=== PATIENT | female | born 1935 | race Two or more races ===

== ENCOUNTER 2020-09-26 02:59 | Inpatient (IN) | payer OTHER ==
[~2020-09-26] VITALS: Ht 160 cm; Wt 51.6 kg
[2020-09-26 04:39] LABS: Basophils # (auto) 0 10 ^3/uL (0-0.2); Basophils % (auto) 0.4 % (0.0-2.0); Eosinophils # (auto) 0.1 10 ^3/uL (0-0.8); Eosinophils % (auto) 0.7 % (0.0-7.0); Hematocrit 35.5 % (36.0-46.0); Hemoglobin 12.2 g/dL (12.2-16.2); Lymphocytes # (auto) 0.8 10 ^3/uL (0.4-5.4); Mean Corpuscular Hemoglobin 32.9 pg (28.0-32.0); Mean Corpuscular Hgb Conc. 34.3 g/dL (32.0-36.0); Mean Corpuscular Volume 95.8 fL (80.0-100.0); Monocytes # (auto) 0.6 10 ^3/uL (0-1.3); Monocytes % (auto) 7.3 % (0.0-12.0); Neutrophils # (auto) 6.3 10 ^3/uL (1.6-8.6); Neutrophils % (auto) 81.6 % (37.0-80.0); Platelet Count (auto) 278 10^3/uL (140-450); Red Blood Cells 3.71 10^6/uL (4.0-5.20); White Blood Cell 7.7 10^3/uL (4.4-10.8)
[2020-09-26 04:50] LABS: INR 0.93 (0.9-1.15)
[2020-09-26 05:02] LABS: Calcium 8.6 mg/dL (8.5-10.1)
[2020-09-26 05:04] LABS: BUN/Creatinine Ratio 17.3; Bilirubin, Total 0.7 mg/dL (0.2-1.0); Total Protein 6.9 g/dL (6.4-8.2)
[2020-09-26] MEDS ORDERED: AZITHROMYCIN 500MG/ 250ML 250 ML IV ONE (15:00)
[2020-09-26] MEDS ORDERED: ZINC SULFATE 220mg CAP or TAB PO ONE (15:00)
[2020-09-26] MEDS ORDERED: SODIUM CHLORIDE 0.9% 500 ML IV ONE (15:00)
[2020-09-26] MEDS ORDERED: methylPREDNISolone SOD SUCC 125 MG/2 ML VL IV ONE (15:00)
[2020-09-26 16:01] LABS: CRP High Sensitivity 1.18 mg/dL (< 0.3)
[2020-09-27] MEDS ORDERED: MORPHINE SULF INJ 2 MG/ML SYRINGE 1ML IV PRN
[2020-09-27] MEDS ORDERED: ACETAMINOPHEN 325 MG TAB PO PRN
[2020-09-27] MEDS ORDERED: NITROGLYCERIN 0.4 MG SL TAB SL PRN
[2020-09-27] MEDS ORDERED: DOCUSATE SOD 100 MG CAP PO PRN
[2020-09-27] MEDS ORDERED: HYDROcodone-ACET 5/325MG TAB PO PRN
[2020-09-27] MEDS: POTASSIUM CHL 20MEQ/100ML 100 ML IV SCH ×2 (00:48→17:28)
[2020-09-27 07:38] LABS: Basophils # (auto) 0 10 ^3/uL (0-0.2); Basophils % (auto) 0.8 % (0.0-2.0); Eosinophils # (auto) 0.1 10 ^3/uL (0-0.8); Eosinophils % (auto) 1.1 % (0.0-7.0); Hematocrit 32.5 % (36.0-46.0); Hemoglobin 11.5 g/dL (12.2-16.2); Lymphocytes # (auto) 0.8 10 ^3/uL (0.4-5.4); Lymphocytes % (auto) 16.3 % (10.0-50.0); Mean Corpuscular Hemoglobin 33.4 pg (28.0-32.0); Mean Corpuscular Hgb Conc. 35.4 g/dL (32.0-36.0); Mean Corpuscular Volume 94.5 fL (80.0-100.0); Monocytes # (auto) 0.5 10 ^3/uL (0-1.3); Monocytes % (auto) 10.7 % (0.0-12.0); Neutrophils # (auto) 3.3 10 ^3/uL (1.6-8.6); Neutrophils % (auto) 71.1 % (37.0-80.0); Platelet Count (auto) 270 10^3/uL (140-450); Red Blood Cells 3.44 10^6/uL (4.0-5.20); Red Cell Distribution Width 11.7 % (11.8-14.3); White Blood Cell 4.6 10^3/uL (4.4-10.8)
[2020-09-27 07:53] LABS: Calcium 8.3 mg/dL (8.5-10.1); Potassium 3.8 mmol/L (3.5-5.1)
[2020-09-27 07:58] LABS: BUN/Creatinine Ratio 24.8; Bilirubin, Total 0.6 mg/dL (0.2-1.0)
[2020-09-27] MEDS: HEPARIN SODIUM (PORCINE) 5000 UNITS/ML 1ML VIAL SC SCH ×2 (10:00→22:56)
[2020-09-27] MEDS ORDERED: DexAMETHasone SOD PHOS 10MG/1ML VIAL INJ IV ONE (10:30)
[2020-09-27] MEDS: ASCORBIC ACID 500 MG TAB PO SCH ×2 (10:36→22:57)
[2020-09-27] MEDS: ZINC SULFATE 220mg CAP or TAB PO SCH (10:36)
[2020-09-27] MEDS: AZITHROMYCIN 500MG/ 250ML 250 ML IV SCH (10:36)
[2020-09-27] MEDS: FAMOTIDINE (10MG/ML) 2ML VL IV SCH ×2 (10:36→22:57)
[2020-09-27] MEDS: SODIUM CHLORIDE 0.9% 1,000 ML IV SCH ×2 (10:37→20:57)
[2020-09-27] MEDS: ONDANSETRON HCL 4 MG/2 ML VIAL IV PRN (13:29)
[2020-09-27 20:00] VITALS: BP 168/67
[2020-09-27] MEDS ORDERED: FERR-20 PO (21:45)
[2020-09-27] MEDS ORDERED: FOLI1TAB6 PO (21:45)
[2020-09-27] MEDS ORDERED: LOSA-69 PO (21:45)
[2020-09-27] MEDS ORDERED: CHLO25TA22 PO (21:45)
[2020-09-27] MEDS ORDERED: AMLO10TA13 PO (21:45)
[2020-09-27] MEDS ORDERED: HYDR50TA15 PO (21:45)
[2020-09-27] MEDS ORDERED: GABA100C9 PO (21:45)
[2020-09-27] MEDS ORDERED: ATOR1TAB PO (21:45)
[2020-09-27] MEDS ORDERED: CILO100T PO (21:45)
[2020-09-27] MEDS ORDERED: DEXL60CA4 PO (21:45)
[2020-09-27] MEDS: hydrALAZINE HCL 20 MG/ML VL IV PRN (22:58)
[2020-09-28] VITALS: BP 168/67
[2020-09-28] MEDS: SODIUM CHLORIDE 0.9% 1,000 ML IV SCH (06:30)
[2020-09-28 08:00] VITALS: BP 148/65
[2020-09-28 09:03] LABS: Basophils # (auto) 0 10 ^3/uL (0-0.2); Basophils % (auto) 0.6 % (0.0-2.0); Eosinophils # (auto) 0.1 10 ^3/uL (0-0.8); Eosinophils % (auto) 1.2 % (0.0-7.0); Hematocrit 32.2 % (36.0-46.0); Hemoglobin 11.2 g/dL (12.2-16.2); Lymphocytes % (auto) 19.3 % (10.0-50.0); Mean Corpuscular Hemoglobin 32.9 pg (28.0-32.0); Mean Corpuscular Hgb Conc. 34.9 g/dL (32.0-36.0); Mean Corpuscular Volume 94.3 fL (80.0-100.0); Monocytes # (auto) 0.4 10 ^3/uL (0-1.3); Monocytes % (auto) 8.7 % (0.0-12.0); Neutrophils # (auto) 3.5 10 ^3/uL (1.6-8.6); Neutrophils % (auto) 70.2 % (37.0-80.0); Nucleated Red Blood Cells % 0.1 %; Platelet Count (auto) 296 10^3/uL (140-450); Red Blood Cells 3.41 10^6/uL (4.0-5.20); Red Cell Distribution Width 11.6 % (11.8-14.3)
[2020-09-28 09:14] LABS: BUN/Creatinine Ratio 27.6; Calcium 8.5 mg/dL (8.5-10.1); Magnesium 2.2 mg/dL (1.6-2.6); Potassium 4.3 mmol/L (3.5-5.1)
[2020-09-28] MEDS: DexAMETHasone SOD PHOS 10MG/1ML VIAL INJ IV SCH (10:36)
[2020-09-28] MEDS: ASCORBIC ACID 500 MG TAB PO SCH ×2 (10:37→22:00)
[2020-09-28] MEDS: AZITHROMYCIN 500MG/ 250ML 250 ML IV SCH (10:37)
[2020-09-28] MEDS: HEPARIN SODIUM (PORCINE) 5000 UNITS/ML 1ML VIAL SC SCH ×2 (10:37→22:00)
[2020-09-28] MEDS: FAMOTIDINE (10MG/ML) 2ML VL IV SCH ×2 (10:37→22:00)
[2020-09-28] MEDS: ZINC SULFATE 220mg CAP or TAB PO SCH (10:37)
[2020-09-28] MEDS: ONDANSETRON HCL 4 MG/2 ML VIAL IV PRN (11:04)
[2020-09-28] MEDS ORDERED: REMDESIVIR PER PHARMACY 0 ML IV SCH (12:45)
[2020-09-28] MEDS ORDERED: REMDESIVIR 200 MG in NS 210ml LOADING DOSE ADULT IV ONE (15:00)
[2020-09-28 16:00] VITALS: BP 152/53
[2020-09-28] MEDS: amLODIPine BESYLATE 5 MG TAB PO SCH (19:06)
[2020-09-28 21:16] LABS: Urine Bacteria FEW /hpf (None Seen); Urine Blood Negative /uL (Negative); Urine Mucus FEW (None Seen); Urine Specific Gravity 1.026 (1.001-1.035); Urine WBC 85 /hpf (0 - 5)
[2020-09-28] MEDS: hydrALAZINE HCL 20 MG/ML VL IV PRN (23:37)
[2020-09-29] VITALS: BP 159/68
[2020-09-29 00:37] VITALS: BP 137/69
[2020-09-29 07:53] LABS: Potassium 3.9 mmol/L (3.5-5.1)
[2020-09-29 08:00] VITALS: BP 166/73
[2020-09-29 08:01] LABS: Albumin 2.9 g/dL (3.4-5.0); BUN/Creatinine Ratio 25.7; Calcium 8.3 mg/dL (8.5-10.1)
[2020-09-29 08:03] LABS: Bilirubin, Total 0.4 mg/dL (0.2-1.0); Total Protein 6.6 g/dL (6.4-8.2)
[2020-09-29] MEDS: DexAMETHasone SOD PHOS 10MG/1ML VIAL INJ IV SCH (09:46)
[2020-09-29] MEDS: FAMOTIDINE (10MG/ML) 2ML VL IV SCH ×2 (09:46→23:36)
[2020-09-29] MEDS: amLODIPine BESYLATE 5 MG TAB PO SCH (09:47)
[2020-09-29] MEDS: ASCORBIC ACID 500 MG TAB PO SCH ×2 (09:47→23:36)
[2020-09-29] MEDS: AZITHROMYCIN 500MG/ 250ML 250 ML IV SCH (09:47)
[2020-09-29] MEDS: ZINC SULFATE 220mg CAP or TAB PO SCH (09:47)
[2020-09-29] MEDS: HEPARIN SODIUM (PORCINE) 5000 UNITS/ML 1ML VIAL SC SCH ×2 (09:48→23:35)
[2020-09-29] MEDS ORDERED: LOSARTAN POTASSIUM 25 MG TAB PO ONE (11:45)
[2020-09-29] MEDS ORDERED: REMDESIVIR 100 MG in SODIUM CHL 0.9% 250 ML IV SCH (15:00)
[2020-09-29] MEDS ORDERED: cefTRIAXone 1GM/50ML D5W 50 ML IV ONE (15:45)
[2020-09-30] VITALS: BP 108/64
[2020-09-30 07:23] LABS: Potassium 4.2 mmol/L (3.5-5.1)
[2020-09-30 07:36] LABS: Albumin 2.9 g/dL (3.4-5.0); BUN/Creatinine Ratio 22.9; Bilirubin, Total 0.5 mg/dL (0.2-1.0); Calcium 8.9 mg/dL (8.5-10.1); Total Protein 6.6 g/dL (6.4-8.2)
[2020-09-30 08:00] VITALS: BP 129/66
[2020-09-30] MEDS ORDERED: cefTRIAXone 1GM/50ML D5W 50 ML IV SCH (09:00)
[2020-09-30] MEDS: DexAMETHasone SOD PHOS 10MG/1ML VIAL INJ IV SCH (09:09)
[2020-09-30] MEDS: AZITHROMYCIN 500MG/ 250ML 250 ML IV SCH (09:10)
[2020-09-30] MEDS: ZINC SULFATE 220mg CAP or TAB PO SCH (09:11)
[2020-09-30] MEDS: amLODIPine BESYLATE 5 MG TAB PO SCH (09:12)
[2020-09-30] MEDS: ASCORBIC ACID 500 MG TAB PO SCH (09:12)
[2020-09-30] MEDS: HEPARIN SODIUM (PORCINE) 5000 UNITS/ML 1ML VIAL SC SCH (09:24)
[2020-09-30] MEDS: FAMOTIDINE (10MG/ML) 2ML VL IV SCH (09:30)
[2020-09-30] MEDS ORDERED: LOSARTAN POTASSIUM 25 MG TAB PO SCH (10:00)
== END 2020-09-30 13:00 | disposition home or self-care (01) | DRG 177 ==
LOC: EDBD 02:59 → ER 03:08 → TELE 03:09 → ER 11:55 → TELE-WESTW 09-27 19:40 → TELE 09-27 19:40 → TELE-WESTW 09-27 19:48
PROVIDERS: ADMIT Nurse Practitioner Family; ATTEND Internal Medicine Geriatric Medicine
PROC: XW033E5 Introduction of Remdesivir Anti-infective into Peripheral Vein, Percutaneous Approach, New Technology Group 5 (ICD-10-PCS; principal; 2020-09-28)
DX: U07.1 COVID-19 (principal); J12.89 Other viral pneumonia; I50.31 Acute diastolic (congestive) heart failure; N17.9 Acute kidney failure, unspecified; N39.0 Urinary tract infection, site not specified; E78.5 Hyperlipidemia, unspecified; E86.0 Dehydration; I73.9 Peripheral vascular disease, unspecified; R09.02 Hypoxemia; R73.9 Hyperglycemia, unspecified; R55 Syncope and collapse; R00.1 Bradycardia, unspecified; I11.0 Hypertensive heart disease with heart failure; I27.20 Pulmonary hypertension, unspecified; I65.22 Occlusion and stenosis of left carotid artery; Z90.49 Acquired absence of other specified parts of digestive tract
CPT/HCPCS: 36415; 51702; 70450; 71045; 80048; 80053; 81001; 82270; 82728; 83036; 83615; 83735; 84484; 85025; 85610; 85730; 86141; 87081; 87426; 93306; 93886; 96360; G0378; J0696; J1100; J2405; J3480; J3490

== ENCOUNTER 2020-11-26 12:30 | Inpatient (IN) | payer OTHER ==
[~2020-11-26] VITALS: Ht 165.1 cm; Wt 49.9 kg
[~2020-11-26 12:30] MED LIST: AMLO-496 PO; ATOR-47 PO; CHLO25TA2 PO; CILO100T PO; DEXL60CA4 PO; FERR-20 PO; FOLI1TAB6 PO; GABA100C9 PO; HYDR50TA15 PO; LOSA-69 PO
[2020-11-26 13:21] LABS: Basophils # (auto) 0.1 10 ^3/uL (0-0.2); Basophils % (auto) 1.9 % (0.0-2.0); Eosinophils # (auto) 0.1 10 ^3/uL (0-0.8); Eosinophils % (auto) 2.5 % (0.0-7.0); Hematocrit 25.7 % (36.0-46.0); Hemoglobin 8.9 g/dL (12.2-16.2); Lymphocytes # (auto) 0.7 10 ^3/uL (0.4-5.4); Lymphocytes % (auto) 17.7 % (10.0-50.0); Mean Corpuscular Hgb Conc. 34.8 g/dL (32.0-36.0); Mean Corpuscular Volume 97.8 fL (80.0-100.0); Monocytes # (auto) 0.3 10 ^3/uL (0-1.3); Neutrophils # (auto) 2.7 10 ^3/uL (1.6-8.6); Neutrophils % (auto) 69.9 % (37.0-80.0); Platelet Count (auto) 200 10^3/uL (140-450); Red Blood Cells 2.63 10^6/uL (4.0-5.20); Red Cell Distribution Width 14.6 % (11.8-14.3); White Blood Cell 3.8 10^3/uL (4.4-10.8)
[2020-11-26 13:41] LABS: Albumin 3.2 g/dL (3.4-5.0); Anion Gap 6 (5-15); Blood Urea Nitrogen 22 mg/dL (7-18); Calcium 8.2 mg/dL (8.5-10.1); Carbon Dioxide 24 mmol/L (21-32); Chloride 102 mmol/L (98-107); Glucose 167 mg/dL (74-106); Magnesium 1.8 mg/dL (1.6-2.6); Potassium 3.4 mmol/L (3.5-5.1); Sodium 132 mmol/L (136-145)
[2020-11-26 13:47] LABS: Alanine Aminotransferase 17 U/L (13-56); Alkaline Phosphatase 54 U/L (45-117); Aspartate Aminotransferase 19 U/L (15-37); BUN/Creatinine Ratio 16.8; Bilirubin, Total 0.5 mg/dL (0.2-1.0); GFR African American 50 mL/min; GFR Non-African American 41 mL/min; Total Protein 6.5 g/dL (6.4-8.2)
[2020-11-26] MEDS ORDERED: POTASSIUM CHL 20MEQ/100ML 100 ML IV ONE (15:00)
[2020-11-26] MEDS ORDERED: LORazepam 0.5 MG TAB PO PRN (15:00)
[2020-11-26] MEDS ORDERED: DOCUSATE SOD 100 MG CAP PO PRN (15:00)
[2020-11-26] MEDS ORDERED: NITROGLYCERIN 0.4 MG SL TAB SL PRN (15:00)
[2020-11-26] MEDS ORDERED: HYDROcodone-ACET 5/325MG TAB PO PRN (15:00)
[2020-11-26] MEDS ORDERED: ONDANSETRON HCL 4 MG/2 ML VIAL IV PRN (15:00)
[2020-11-26] MEDS ORDERED: ACETAMINOPHEN 325 MG TAB PO PRN (15:00)
[2020-11-26] MEDS ORDERED: ALUM & MAG HYDROX-SIMETH LIQ(MAALOX) 30 ML PO PRN (15:00)
[2020-11-26] MEDS ORDERED: LACTATED RINGER'S 1,000 ML IV ONE (15:00)
[2020-11-26] MEDS ORDERED: MORPHINE SULF INJ 2 MG/ML SYRINGE 1ML IV PRN ×2 (15:00)
[2020-11-26] MEDS ORDERED: levoFLOXacin 500MG 100 ML IV ONE (15:15)
[2020-11-26] MEDS ORDERED: cefTRIAXone 1GM/50ML D5W 50 ML IV ONE (15:30)
[2020-11-26] MEDS ORDERED: CILO50TA PO (16:10)
[2020-11-26] MEDS ORDERED: CLINDAMYCIN 600MG IV 50 ML IV ONE (16:15)
[2020-11-26] MEDS ORDERED: hydrALAZINE HCL 20 MG/ML VL IV PRN (17:00)
[2020-11-26] MEDS ORDERED: PANTOPRAZOLE 40 MG/10 ML VIAL INJ IV ONE (17:00)
[2020-11-26 17:03] LABS: Cholesterol 135 mg/dL (< 200)
[2020-11-26 17:06] LABS: HDL Cholesterol 75 mg/dL (40-59); LDL Cholesterol 59 mg/dL (< 100); Triglycerides 47 mg/dL (< 150)
[2020-11-26] MEDS: SOD CHL 0.45% 1,000 ML IV SCH (17:16)
[2020-11-26] MEDS: FERROUS SULFATE 325 MG TAB PO SCH (18:19)
[2020-11-26] MEDS: CILOSTAZOL 100 MG TAB PO SCH (18:19)
[2020-11-26 19:08] LABS: Urine Bacteria FEW /hpf (None Seen); Urine Blood Negative /uL (Negative); Urine Specific Gravity 1.007 (1.001-1.035); Urine WBC 8 /hpf (0 - 5)
[2020-11-26 19:19] LABS: Alcohol, Urine < 3.0 mg/dL (0-10); Amphetamine Screen, Urine NEGATIVE (NEGATIVE); Barbiturate Scree,Urine NEGATIVE (NEGATIVE); Benzodiazephine Screen, Urine NEGATIVE (NEGATIVE); Cannabinoid Screen, Urine NEGATIVE (NEGATIVE); Cocaine Screen, Urine NEGATIVE (NEGATIVE); Opiate Scree,Urine NEGATIVE (NEGATIVE); Phencyclidine Screen, Urine NEGATIVE (NEGATIVE)
[2020-11-26] MEDS ORDERED: LORazepam 2MG/ML-1ML VIAL IV PRN (20:15)
[2020-11-26] MEDS: CLINDAMYCIN 600MG IV 50 ML IV SCH (22:06)
[2020-11-26] MEDS: ATORVASTATIN 20 MG TAB PO SCH (22:07)
[2020-11-26] MEDS: GABAPENTIN 100 MG CAP PO SCH (22:07)
[2020-11-27 05:00] VITALS: BP 141/58
[2020-11-27] MEDS: CLINDAMYCIN 600MG IV 50 ML IV SCH (06:31)
[2020-11-27] MEDS: GABAPENTIN 100 MG CAP PO SCH ×3 (06:32→21:42)
[2020-11-27] MEDS: CILOSTAZOL 100 MG TAB PO SCH ×2 (06:32→17:56)
[2020-11-27] MEDS: SOD CHL 0.45% 1,000 ML IV SCH (06:32)
[2020-11-27] MEDS: FERROUS SULFATE 325 MG TAB PO SCH ×3 (08:12→17:56)
[2020-11-27 08:15] VITALS: BP 145/52
[2020-11-27 08:45] LABS: Albumin 3.2 g/dL (3.4-5.0); BUN/Creatinine Ratio 13.3; Calcium 8.4 mg/dL (8.5-10.1); INR 1.02 (0.9-1.15); Magnesium 1.6 mg/dL (1.6-2.6); Partial Thromboplastin Time 27.1 sec (23.0-31.2); Potassium 3.8 mmol/L (3.5-5.1)
[2020-11-27 08:47] LABS: Bilirubin, Total 0.7 mg/dL (0.2-1.0); Phosphorus 2.8 mg/dL (2.5-4.90); Total Protein 6.4 g/dL (6.4-8.2)
[2020-11-27 09:00] VITALS: BP 145/52
[2020-11-27 09:06] LABS: Basophils # (auto) 0.1 10 ^3/uL (0-0.2); Basophils % (auto) 1.9 % (0.0-2.0); Eosinophils # (auto) 0.2 10 ^3/uL (0-0.8); Eosinophils % (auto) 3.8 % (0.0-7.0); Hematocrit 27.9 % (36.0-46.0); Hemoglobin 9.8 g/dL (12.2-16.2); Lymphocytes # (auto) 0.9 10 ^3/uL (0.4-5.4); Lymphocytes % (auto) 18.9 % (10.0-50.0); Mean Corpuscular Hemoglobin 33.7 pg (28.0-32.0); Mean Corpuscular Hgb Conc. 35.1 g/dL (32.0-36.0); Mean Corpuscular Volume 95.9 fL (80.0-100.0); Monocytes # (auto) 0.4 10 ^3/uL (0-1.3); Monocytes % (auto) 8.2 % (0.0-12.0); Neutrophils # (auto) 3.1 10 ^3/uL (1.6-8.6); Neutrophils % (auto) 67.2 % (37.0-80.0); Nucleated Red Blood Cells % 0.1 %; Platelet Count (auto) 230 10^3/uL (140-450); Red Blood Cells 2.91 10^6/uL (4.0-5.20); Red Cell Distribution Width 14.7 % (11.8-14.3); White Blood Cell 4.6 10^3/uL (4.4-10.8)
[2020-11-27] MEDS: LOSARTAN POTASSIUM 50 MG TAB PO SCH (09:49)
[2020-11-27] MEDS: PANTOPRAZOLE 40 MG/10 ML VIAL INJ IV SCH ×2 (09:50→21:41)
[2020-11-27] MEDS: MAGNESIUM OXIDE 400 MG TAB PO SCH ×2 (12:14→21:42)
[2020-11-27] MEDS: AZITHROMYCIN 500MG/ 250ML 250 ML IV SCH (12:15)
[2020-11-27] MEDS: Glucerna Carbsteady SHAKE Vanilla 8oz PO SCH ×3 (12:44→21:42)
[2020-11-27 16:49] VITALS: BP 129/45
[2020-11-27] MEDS: cefTRIAXone 1GM/50ML D5W 50 ML IV SCH (21:41)
[2020-11-27] MEDS: ATORVASTATIN 20 MG TAB PO SCH (21:42)
[2020-11-27 22:00] VITALS: BP 132/61
[2020-11-28 05:00] VITALS: BP 145/66
[2020-11-28] MEDS: GABAPENTIN 100 MG CAP PO SCH ×3 (05:44→22:00)
[2020-11-28] MEDS: CILOSTAZOL 100 MG TAB PO SCH (06:18)
[2020-11-28] MEDS: Glucerna Carbsteady SHAKE Vanilla 8oz PO SCH ×4 (06:18→22:00)
[2020-11-28 08:00] VITALS: BP 138/57
[2020-11-28 09:00] VITALS: BP 138/57
[2020-11-28 09:26] LABS: Basophils # (auto) 0.1 10 ^3/uL (0-0.2); Basophils % (auto) 1.7 % (0.0-2.0); Eosinophils # (auto) 0.2 10 ^3/uL (0-0.8); Eosinophils % (auto) 4.7 % (0.0-7.0); Hematocrit 28.3 % (36.0-46.0); Hemoglobin 9.9 g/dL (12.2-16.2); Lymphocytes # (auto) 0.9 10 ^3/uL (0.4-5.4); Lymphocytes % (auto) 20.5 % (10.0-50.0); Mean Corpuscular Hemoglobin 33.8 pg (28.0-32.0); Mean Corpuscular Hgb Conc. 35.1 g/dL (32.0-36.0); Mean Corpuscular Volume 96.3 fL (80.0-100.0); Monocytes # (auto) 0.3 10 ^3/uL (0-1.3); Monocytes % (auto) 7.2 % (0.0-12.0); Neutrophils # (auto) 2.9 10 ^3/uL (1.6-8.6); Neutrophils % (auto) 65.9 % (37.0-80.0); Platelet Count (auto) 196 10^3/uL (140-450); Red Blood Cells 2.93 10^6/uL (4.0-5.20); Red Cell Distribution Width 14.6 % (11.8-14.3); White Blood Cell 4.4 10^3/uL (4.4-10.8)
[2020-11-28 09:41] LABS: BUN/Creatinine Ratio 14.6; Calcium 8.6 mg/dL (8.5-10.1); Magnesium 1.9 mg/dL (1.6-2.6); Potassium 3.8 mmol/L (3.5-5.1)
[2020-11-28] MEDS: LOSARTAN POTASSIUM 50 MG TAB PO SCH (10:07)
[2020-11-28] MEDS: FERROUS SULFATE 325 MG TAB PO SCH ×3 (10:07→18:29)
[2020-11-28] MEDS: MAGNESIUM OXIDE 400 MG TAB PO SCH ×2 (10:07→22:00)
[2020-11-28] MEDS: PANTOPRAZOLE 40 MG/10 ML VIAL INJ IV SCH ×2 (10:08→22:00)
[2020-11-28] MEDS: AZITHROMYCIN 500MG/ 250ML 250 ML IV SCH (10:08)
[2020-11-28 13:00] VITALS: BP 147/81
[2020-11-28 17:00] VITALS: BP 138/63
[2020-11-28 22:00] VITALS: BP 139/62
[2020-11-28] MEDS: ATORVASTATIN 20 MG TAB PO SCH (22:00)
[2020-11-28] MEDS: cefTRIAXone 1GM/50ML D5W 50 ML IV SCH (23:00)
[2020-11-29 05:00] VITALS: BP 138/66
[2020-11-29] MEDS: Glucerna Carbsteady SHAKE Vanilla 8oz PO SCH ×2 (06:43→13:19)
[2020-11-29] MEDS: GABAPENTIN 100 MG CAP PO SCH (06:44)
[2020-11-29] MEDS: FERROUS SULFATE 325 MG TAB PO SCH ×2 (08:30→13:19)
[2020-11-29 09:00] VITALS: BP 164/68
[2020-11-29] MEDS: AZITHROMYCIN 500MG/ 250ML 250 ML IV SCH (10:04)
[2020-11-29] MEDS: PANTOPRAZOLE 40 MG/10 ML VIAL INJ IV SCH (10:04)
[2020-11-29] MEDS: LOSARTAN POTASSIUM 50 MG TAB PO SCH (10:05)
[2020-11-29] MEDS: MAGNESIUM OXIDE 400 MG TAB PO SCH (10:05)
[2020-11-29] MEDS ORDERED: fentaNYL CITRATE 100 MCG/2 ML VL ONE (10:28)
[2020-11-29] MEDS ORDERED: diphenhdrAMINE HCL 50 MG/1 ML VL ONE (10:28)
[2020-11-29] MEDS ORDERED: MIDAZOLAM HCL 5 MG/ML-1ML VIAL ONE (10:28)
[2020-11-29] MEDS ORDERED: LIDOCAINE VISCOUS 2% 15ML UD ONE (10:28)
[2020-11-29 13:00] VITALS: BP 142/62
[2020-11-29 13:44] VITALS: BP 142/62
== END 2020-11-29 15:00 | disposition home health service (06) | DRG 683 ==
LOC: ER 12:30 → EDUNIT# 12:30 → EDBD 12:30 → TELE 12:31 → TELE-CENTR 11-27 03:50
PROVIDERS: ADMIT Hospitalist; ATTEND Internal Medicine Geriatric Medicine
DX: N17.9 Acute kidney failure, unspecified (principal); N39.0 Urinary tract infection, site not specified; I13.0 Hypertensive heart and chronic kidney disease with heart failure and stage 1 through stage 4 chronic kidney disease, or unspecified chronic kidney disease; K62.5 Hemorrhage of anus and rectum; I16.9 Hypertensive crisis, unspecified; E87.1 Hypo-osmolality and hyponatremia; E44.1 Mild protein-calorie malnutrition; J98.11 Atelectasis; D62 Acute posthemorrhagic anemia; M48.02 Spinal stenosis, cervical region; K21.9 Gastro-esophageal reflux disease without esophagitis; N18.32 Chronic kidney disease, stage 3b; E87.6 Hypokalemia; I50.9 Heart failure, unspecified; E86.0 Dehydration; D63.8 Anemia in other chronic diseases classified elsewhere; E78.5 Hyperlipidemia, unspecified; E11.22 Type 2 diabetes mellitus with diabetic chronic kidney disease; E11.51 Type 2 diabetes mellitus with diabetic peripheral angiopathy without gangrene; I49.8 Other specified cardiac arrhythmias; R55 Syncope and collapse; Z20.822 Contact with and (suspected) exposure to COVID-19; I49.9 Cardiac arrhythmia, unspecified; S09.90XA Unspecified injury of head, initial encounter; W01.0XXA Fall on same level from slipping, tripping and stumbling without subsequent striking against object, initial encounter; Y93.89 Activity, other specified; Z79.02 Long term (current) use of antithrombotics/antiplatelets; Z79.899 Other long term (current) drug therapy; Z81.8 Family history of other mental and behavioral disorders; Z86.73 Personal history of transient ischemic attack (TIA), and cerebral infarction without residual deficits; Z90.49 Acquired absence of other specified parts of digestive tract; Y92.89 Other specified places as the place of occurrence of the external cause; Y99.8 Other external cause status; Z89.112 Acquired absence of left hand; R09.89 Other specified symptoms and signs involving the circulatory and respiratory systems
CPT/HCPCS: 36415; 70450; 70551; 71045; 80048; 80053; 80061; 80307; 81001; 82270; 82306; 83036; 83540; 83550; 83735; 84100; 84443; 84484; 85025; 85610; 85730; 87040; 87086; 87426; 93005; 93306; 93970; 95819; C9113; G0378; J0696; J1956; J2250; J3480; J3490